=== PATIENT | male | born 1965 | race Caucasian/White ===

== ENCOUNTER 2017-03-24 17:34 | Emergency (ER) | payer MEDICAID ==
[2017-03-24] MEDS: ACETAMINOPHEN 325 MG TAB PO (18:58)
== END 2017-03-24 19:00 | disposition home or self-care (01) ==
LOC: FTE 17:34
DX: R50.9 Fever, unspecified (principal); J02.9 Acute pharyngitis, unspecified; R51 Headache; R05 Cough
CPT/HCPCS: 99283; Z7502